=== PATIENT | female | born 1975 | race Caucasian/White ===

== ENCOUNTER 2017-11-06 08:40 | Outpatient (CLI) | payer OTHER | END 2017-11-06 08:41 | disposition home or self-care (01) | LOC: BICMAMMO 08:40 | PROVIDERS: ATTEND Obstetrics & Gynecology | DX: Z12.31 Encounter for screening mammogram for malignant neoplasm of breast (principal); N64.89 Other specified disorders of breast; Z80.3 Family history of malignant neoplasm of breast | CPT/HCPCS: 77063; 77067 ==